=== PATIENT | female | born 1995 | race Caucasian/White ===

== ENCOUNTER 2024-09-29 11:17 | Emergency (ER) | payer SELFPAY ==
--- NOTE | 2024-09-29 11:59 | RAD REPORT ---
EXAMINATION: XR RIGHT ANKLE CLINICAL INDICATION: . Pain;Swelling TECHNIQUE:Two view radiograph of the right ankle were obtained. COMPARISON: No prior exam. FINDINGS: Moderate soft tissue swelling adjacent to lateral malleolus. No fracture or dislocation se en. Large plantar calcaneal spur.
--- NOTE | 2024-09-29 12:46 | EDPHYS ---
Physician Documentation [facility] Name: Yogesh Garcia Age: 28 yrs Sex: Female : 1995 Arrival Date: 09/29/2024 Time: 11:17 Bed 11 Private MD: ED Physician Lazaro Sauceda HPI: 09/29 11:28 This 28 yrs old Female presents to ER via Ambulatory with complaints of Fall Injury, ms3 Ankle Injury. 11:28 28-year-old female with no past medical history presents to the emergency department ms3 for right ankle pain after running across her front yard and rolling her right ankle causing her to fall. Patient states the pain is a 4/10 and worse with ambulation. She denies any alleviating factors. Patient notes she did take 800 mg ibuprofen prior to arrival.. 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 - Infectious Disease History:: Denies. - Social history:: Smoking status: Reported history of juuling and/or vaping. Patient/guardian denies using tobacco, Stopped _ months ago 3. ROS: 11:28 Constitutional: Negative for fever, and chills. Cardiovascular: Negative for chest ms3 pain, and palpitations. Respiratory: Negative for shortness of breath, cough, wheezing, and pleuritic chest pain, Abdomen/GI: Negative for abdominal pain, nausea, vomiting, diarrhea, and constipation, 11:28 MS/extremity: Positive for pain, tenderness, of the right lateral malleolus, Exam: 11:28 Constitutional: This is a well developed, well nourished patient who is awake, alert, ms3 and in no acute distress. Cardiovascular: Regular rate and rhythm with a normal S1 and S2. No gallops, murmurs, or rubs. Normal PMI, no JVD. No pulse deficits. Respiratory: Lungs have equal breath sounds bilaterally, clear to auscultation and percussion. No rales, rhonchi or wheezes noted. No increased work of breathing, no retractions or nasal flaring. Abdomen/GI: Soft, non-tender, with normal bowel sounds. No distension or tympany. No guarding or rebound. No evidence of tenderness throughout. Vital Signs: 11:23 BP 129 / 99; Pulse 92; Resp 16; Temp 98.1; Pulse Ox 99% on R/A; Weight 74.84 kg; Pain dd2 2/10; 11:23 Pain Scale: Adult dd2 MDM: 11:21 Medical Screening Exam initiated ms3 16:02 Differential diagnosis: contusion, fracture, sprain, strain. Data reviewed: vital ms3 signs, nurses notes, radiologic studies, plain films, and as a result, I will discharge patient. Independent interpretation of the following test(s) in the Emergency Department X-Ray: My interpretation is Right ankle x-ray images reviewed by me do not reveal fracture or dislocation. Counseling: I had a detailed discussion with the patient and/or guardian regarding the historical points, exam findings, and any diagnostic results supporting the discharge/admit diagnosis, radiology results, the need for outpatient follow up, to return to the emergency department if symptoms worsen or persist or if there are any questions or concerns that arise at home. Special discussion: I discussed with the patient/guardian in detail that at this point there is no indication for admission to the hospital. It is understood, however, that if the symptoms persist or worsen the patient needs to return immediately for re-evaluation. ED course: Discussed x-ray findings with patient. Patient given crutches to keep weight off right foot until follow-up with orthopedics. Patient understands and agrees with plan. All questions were answered. Return precautions discussed include worsening symptoms, or other concerns. On reevaluation patient's right foot neurovascularly intact with no signs of compartment syndrome present. 09/29 11:25 Order name: Ankle Right 3 View XRAY; Complete Time: 12:15 ms3 Administered Medications: No medications were administered Disposition Summary: 09/29/24 12:45 Discharge Ordered Notes: Location: Home ms3 Condition: Stable ms3 Diagnosis - Pain in right ankle and joints of right foot ms3 Followup: ms3 - With: Corby Rhoades MD - When: 2 - 3 days - Reason: Recheck today's complaints Discharge Instructions: - Discharge Summary Sheet ms3 - Ankle Pain ms3 Forms: - Work release form bd - Medication Reconciliation Form ms3 - Antibiotic Education ms3 - Prescription Opioid Use ms3 - Patient Portal Instructions ms3 - Leadership Thank You Letter ms3 Signatures: Dispatcher [employer] EDMS Lazaro Sauceda DO DO ms3 ADRIAN HENSON, RN RN dd2 Corrections: (The following items were deleted from the chart) 11: 11:25 Ankle Right 3 View+RAD.RAD.BRZ ordered. EDMS EDMS 11: 11:26 Allergies: No Known Allergies; dd2 dd2 13:18 12:45 Crutches ordered. ms3 bp
--- NOTE | 2024-09-29 12:46 | ER ---
Nurse's Notes [facility] Name: Yogesh Garcia Age: 28 yrs Sex: Female : 1995 Arrival Date: 09/29/2024 Time: 11:17 Bed 11 Private MD: Diagnosis: Pain in right ankle and joints of right foot Presentation: 09/29 11:23 Chief complaint: Patient states: SHE WAS RUNNING ACROSS THE YARD AND ROLLED RT ANKLE. dd2 Coronavirus screen: At this time, the client does not indicate any symptoms associated with coronavirus-19. Ebola Screen: No symptoms or risks identified at this time. Initial Sepsis Screen: Does the patient meet any 2 criteria? No. Patient's initial sepsis screen is negative. Does the patient have a suspected source of infection? No. Patient's initial sepsis screen is negative. Risk Assessment: Do you want to hurt yourself or someone else? Patient reports no desire to harm self or others. Onset of symptoms was September 29, 2024. 11:23 Method Of Arrival: Ambulatory dd2 11:23 Acuity: JUAN 5 dd2 Triage Assessment: 11:26 General: Appears in no apparent distress. uncomfortable, Behavior is calm, cooperative, dd2 appropriate for age. Pain: Complains of pain in right lateral malleolus Pain currently is 2 out of 10 on a pain scale. Musculoskeletal: Circulation, motion, and sensation intact. Range of motion: intact in all extremities. ACETYLENE BURNER: 11:26 LMP N/A - control method, Not dd2 Historical: - Allergies: 11:26 PENICILLINS; dd2 - PMHx: 11:26 None; dd2 - PSHx: 11:26 None; dd2 - Immunization history:: Adult Immunizations up to date. - Infectious Disease History:: Denies. - Social history:: Smoking status: Reported history of juuling and/or vaping. Patient/guardian denies using tobacco, Stopped _ months ago 3. Screenin:36 [facility] ED Fall Risk Assessment (Adult) History of falling in the last 3 months, bp including since admission Yes- single mechanical fall (1 pt) Confusion or Disorientation No (0 pts) Intoxicated or Sedated No (0 pts) Impaired Gait No (0 pts) Mobility Assist Device Used No (0 pt) Altered Elimination No (0 pt) Score/Fall Risk Level 0 - 2 = Low Risk Oriented to surroundings. Abuse screen: Denies threats or abuse. Denies injuries from another. Nutritional screening: No deficits noted. Tuberculosis screening: No symptoms or risk factors identified. Assessment: 11:36 General: SEE TRIAGE NOTE. bp Vital Signs: 11:23 BP 129 / 99; Pulse 92; Resp 16; Temp 98.1; Pulse Ox 99% on R/A; Weight 74.84 kg; Pain dd2 03/29; 11:23 Pain Scale: Adult dd2 ED Course: 11:19 Patient arrived in ED. mr 11:19 Lazaro Sauceda DO is Attending Physician. ms3 11:26 Triage completed. dd2 11:26 Arm band placed on right wrist. dd2 11:27 Charlie Luis, RN is Primary Nurse. bp 11:36 Patient has correct armband on for positive identification. bp 11:40 Ankle Right 3 View XRAY In Process Unspecified. EDMS 12:44 Corby Rhoades MD is Referral Physician. ms3 13:18 No provider procedures requiring assistance completed. Patient did not have IV access bp during this emergency room visit. Pablito wrap to right ankle. Administered Medications: No medications were administered Medication: 11:36 VIS not applicable for this client. bp Outcome: 12:45 Discharge ordered by . ms3 13:18 Discharged to home ambulatory, bp 13:18 Condition: stable 13:18 Discharge instructions given to patient, Instructed on discharge instructions, follow up and referral plans. Demonstrated understanding of instructions, follow-up care, 13:18 Patient left the ED. bp Signatures: Dispatcher [employer] EDSD Lupis Guerra, Reg Reg mr Charlie Luis, RN RN bp Lazaro Sauceda DO DO ms3 ADRIAN HENSON RN RN dd2 Corrections: (The following items were deleted from the chart) 11:26 11:26 Allergies: No Known Allergies; dd2 dd2
[2024-09-29 13:32] VITALS: BP 129/99; TEMP 98.1; O2SAT 99
== END 2024-09-29 13:18 | disposition home or self-care (01) ==
LOC: ER 11:17
DX: M25.571 Pain in right ankle and joints of right foot (principal)
CPT/HCPCS: 99283